=== PATIENT | female | born 1980 | race Two or more races ===

== ENCOUNTER 2017-06-24 21:12 | Emergency (ER) | payer OTHER ==
[~2017-06-24] VITALS: Ht 162.6 cm; Wt 198.7 kg
[~2017-06-24 21:12] MED LIST: CEFP200 PO; DOXY100 PO; HEPARIN 1,1000 UNIT/; HYDACE5325 PO; HYDMOR2 PO; Keflex500 MG PO; LANTUS; LEVOTHYROXINE; LORA.5; NAPR500 PO; NAPR550 PO; NOVOLOG; Norco 5-325 Ta1 EACH PO; OXYACE5T PO; OXYACE7.5T; PENVK500 PO; Percocet 5-3251 EACH PO; RXHYDMOR2 PO; RXNAPNA550 PO; RXOXYACE PO; TRAM50; WARF5 PO; Zofran Odt4 MG SL
[2017-06-24 21:41] LABS: BASOPHILS ABSOLUTE AUTO 0.04 K/mm3 (0.00-0.23); BASOPHILS PERCENT AUTO 1 % (0-2); EOSINOPHILS ABSOLUTE AUTO 0.37 K/mm3 (0.00-0.68); EOSINOPHILS PERCENT AUTO 6 % (0-6); Hematocrit 44.2 % (33.0-51.0); Hemoglobin 14.3 g/dL (11.5-16.0); IMMATURE GRAN ABSOLUTE AUTO 0.03 K/mm3 (0.00-0.10); IMMATURE GRAN PERCENT AUTO 0 % (0-1); LYMPHOCYTES ABSOLUTE AUTO 1.14 K/mm3 (0.84-5.20); LYMPHOCYTES PERCENT AUTO 17 % (21-46); MONOCYTES ABSOLUTE AUTO 0.54 K/mm3 (0.16-1.47); MONOCYTES PERCENT AUTO 8 % (4-13); Mean Corpuscular HGB 24.9 pg (26.0-34.0); Mean Corpuscular HGB Conc 32.4 g/dL (31.5-36.5); Mean Corpuscular Volume 77 fL (80-100); NEUTROPHILS ABSOLUTE AUTO 4.55 K/mm3 (1.96-9.15); NEUTROPHILS PERCENT AUTO 68 % (41-73); Platelet Count 332 K/mm3 (150-400); RDW Coefficient Variation 14.9 % (11.7-14.2); RDW Standard Deviation 40.3 fL (35.1-46.3); Red Blood Cell Count 5.75 M/mm3 (3.80-5.20); White Blood Cell Count 6.67 K/mm3 (4.00-11.30)
[2017-06-24 22:00] LABS: Alanine Aminotransfer (ALT/SGP 41 U/L (12-78); Albumin, Blood 3.6 g/dL (3.4-5.0); Albumin/Globulin Ratio 0.8 (0.8-1.8); Alk Phos 113 U/L (50-136); Anion Gap 7 mmol/L (6-16); Aspartate Aminotrans (AST/SGOT 25 U/L (12-37); Bilirubin, Total 0.4 mg/dL (0.1-1.0); Blood Urea Nitrogen 8 mg/dL (8-24); Bun/Creatinine Ratio 13.5 (12.0-20.0); CO2, Blood 27 mmol/L (21-32); Calcium, Blood 8.7 mg/dL (8.5-10.1); Chloride, Blood 101 mmol/L (98-108); Creatinine, Blood 0.59 mg/dL (0.40-1.00); Globulin, Blood 4.6 g/dL (2.2-4.0); Glomerular Filtration Rate >60 (60-); Glucose, Blood 221 mg/dL (70-99); Potassium, Blood 3.9 mmol/L (3.5-5.5); Sodium, Blood 135 mmol/L (136-145); Total Protein, Blood 8.2 g/dL (6.4-8.2)
[2017-06-24 22:30] LABS: Source, Urine Voided
[2017-06-24 22:32] LABS: Bilirubin, Urine Neg (Neg); Blood, Urine Neg (Neg); Glucose Qualitative, Urine 2+ (Neg); Ketones, Urine Neg (Neg); Leukocyte Esterase, Urine 1+ (Neg); Nitrite, Urine Neg (Neg); Protein, Urine 1+ (Neg); Specific Gravity, Urine 1.015 (1.003-1.022); Urobilinogen, Urine 1+ (Normal)
[2017-06-24 22:39] LABS: Appearance, Urine Clear (Clear); Color, Urine Yellow (P-Yellow)
[2017-06-24 22:41] LABS: Bacteria Rare /hpf; Red Blood Cells, Urine Not Seen /hpf (0-2); Squamous Epithelial Cells Rare /hpf (Few); White Blood Cells, Urine 0-2 /hpf (0-5)
[2017-06-24 22:47] LABS: Influenza A Negative (NEGATIVE); Influenza B Negative (NEGATIVE)
[2017-06-24 22:49] LABS: International Normalized Ratio 1.51; Prothrombin Time Results 15.9 Sec (9.7-11.5)
[2017-06-24] MEDS ORDERED: Zofran Odt4 MG SL (23:55)
[2017-06-24] MEDS ORDERED: Mucinex600 MG PO (23:55)
[2017-06-24] MEDS ORDERED: Pseudoephedrine30 MG PO (23:55)
[2017-06-25] MEDS ORDERED: Robaxin500 MG PO (00:09)
== END 2017-06-25 00:14 | disposition home or self-care (01) ==
LOC: ER 21:12
PROVIDERS: Emergency Medicine; Physician Assistant
DX: J06.9 Acute upper respiratory infection, unspecified (principal); R10.11 Right upper quadrant pain; R10.31 Right lower quadrant pain; N83.202 Unspecified ovarian cyst, left side; E11.9 Type 2 diabetes mellitus without complications; J45.909 Unspecified asthma, uncomplicated; Z79.01 Long term (current) use of anticoagulants; Z79.899 Other long term (current) drug therapy; Z79.4 Long term (current) use of insulin; Z86.718 Personal history of other venous thrombosis and embolism; Z90.49 Acquired absence of other specified parts of digestive tract
CPT/HCPCS: 36415; 71046; 74176; 80053; 81001; 81025; 83690; 85025; 85610; 87081; 87086; 87430; 87804; 96374; 96375; 99284; J1170; J2405

== ENCOUNTER 2017-07-21 15:06 | Emergency (ER) | payer OTHER ==
[~2017-07-21] VITALS: Ht 162.6 cm; Wt 193.0 kg
[~2017-07-21 15:06] MED LIST changes: +Mucinex600 MG PO; +Pseudoephedrine30 MG PO; +Robaxin500 MG PO
[2017-07-21] MEDS ORDERED: LEVSOD75 PO (15:51)
[2017-07-21] MEDS ORDERED: Novolog Fl100 UNIT/1 (15:51)
[2017-07-21] MEDS ORDERED: GABA100 PO (15:52)
[2017-07-21] MEDS ORDERED: WARF10 PO (15:52)
[2017-07-21 16:14] LABS: Source, Urine Catheter
[2017-07-21 16:18] LABS: Blood, Urine 2+ (Neg); Glucose Qualitative, Urine Neg (Neg); Ketones, Urine 4+ (Neg); Leukocyte Esterase, Urine 1+ (Neg); Nitrite, Urine Neg (Neg); Protein, Urine 2+ (Neg); Urobilinogen, Urine 1+ (Normal)
[2017-07-21 16:24] LABS: Appearance, Urine Clear (Clear); Bilirubin, Urine 1+ (Neg); Color, Urine Yellow (P-Yellow)
[2017-07-21 16:26] LABS: Yeast/Fungi Urine Few /hpf
[2017-07-21 16:27] LABS: Bacteria Few /hpf; Squamous Epithelial Cells Mod /hpf (Few)
[2017-07-21 16:44] LABS: BASOPHILS ABSOLUTE AUTO 0.04 K/mm3 (0.00-0.23); BASOPHILS PERCENT AUTO 1 % (0-2); EOSINOPHILS PERCENT AUTO 5 % (0-6); Hematocrit 36.4 % (33.0-51.0); Hemoglobin 11.5 g/dL (11.5-16.0); IMMATURE GRAN ABSOLUTE AUTO 0.02 K/mm3 (0.00-0.10); IMMATURE GRAN PERCENT AUTO 0 % (0-1); LYMPHOCYTES ABSOLUTE AUTO 1.54 K/mm3 (0.84-5.20); LYMPHOCYTES PERCENT AUTO 21 % (21-46); MONOCYTES ABSOLUTE AUTO 0.64 K/mm3 (0.16-1.47); MONOCYTES PERCENT AUTO 9 % (4-13); Mean Corpuscular HGB 24.8 pg (26.0-34.0); Mean Corpuscular HGB Conc 31.6 g/dL (31.5-36.5); Mean Corpuscular Volume 78 fL (80-100); Mean Platelet Volume 9.6 fL (9.1-12.4); NEUTROPHILS ABSOLUTE AUTO 4.78 K/mm3 (1.96-9.15); NEUTROPHILS PERCENT AUTO 64 % (41-73); Platelet Count 378 K/mm3 (150-400); RDW Standard Deviation 42.8 fL (35.1-46.3); Red Blood Cell Count 4.64 M/mm3 (3.80-5.20); White Blood Cell Count 7.42 K/mm3 (4.00-11.30)
[2017-07-21 17:00] LABS: Prothrombin Time Results 57.4 Sec (9.7-11.5)
[2017-07-21 17:14] LABS: Alanine Aminotransfer (ALT/SGP 30 U/L (12-78); Albumin, Blood 3.1 g/dL (3.4-5.0); Albumin/Globulin Ratio 0.7 (0.8-1.8); Alk Phos 160 U/L (50-136); Anion Gap 10 mmol/L (6-16); Aspartate Aminotrans (AST/SGOT 32 U/L (12-37); Bilirubin, Total 0.7 mg/dL (0.1-1.0); Blood Urea Nitrogen 8 mg/dL (8-24); Bun/Creatinine Ratio 11.5 (12.0-20.0); CO2, Blood 24 mmol/L (21-32); Calcium, Blood 8.3 mg/dL (8.5-10.1); Chloride, Blood 103 mmol/L (98-108); Creatinine, Blood 0.69 mg/dL (0.40-1.00); Globulin, Blood 4.7 g/dL (2.2-4.0); Glomerular Filtration Rate >60 (60-); Glucose, Blood 98 mg/dL (70-99); Potassium, Blood 3.5 mmol/L (3.5-5.5); Sodium, Blood 137 mmol/L (136-145); Total Protein, Blood 7.8 g/dL (6.4-8.2)
[2017-07-21 17:20] LABS: International Normalized Ratio 5.24
== END 2017-07-21 20:50 | disposition short-term general hospital (02) ==
LOC: ER 15:06
PROVIDERS: Emergency Medicine
DX: K85.90 Acute pancreatitis without necrosis or infection, unspecified (principal); K91.870 Postprocedural hematoma of a digestive system organ or structure following a digestive system procedure; R79.1 Abnormal coagulation profile; J45.909 Unspecified asthma, uncomplicated
CPT/HCPCS: 36415; 74177; 80053; 81001; 81025; 82947; 83690; 85025; 85610; 93005; 93010; 96361; 96374; 96375; 96376; 99285; J1170; J2405; J7030; P9612; Q9967

== ENCOUNTER 2017-08-05 12:56 | Inpatient (IN) | payer OTHER ==
[~2017-08-05] VITALS: Ht 165.1 cm; Wt 188.2 kg
[~2017-08-05 12:56] MED LIST changes: +GABA100 PO; +LEVSOD75 PO; +Novolog Fl100 UNIT/1; +WARF10 PO
[2017-08-05 14:08] LABS: BASOPHILS ABSOLUTE AUTO 0.05 K/mm3 (0.00-0.23); BASOPHILS PERCENT AUTO 1 % (0-2); EOSINOPHILS ABSOLUTE AUTO 0.22 K/mm3 (0.00-0.68); EOSINOPHILS PERCENT AUTO 3 % (0-6); Hematocrit 40.3 % (33.0-51.0); Hemoglobin 12.5 g/dL (11.5-16.0); IMMATURE GRAN ABSOLUTE AUTO 0.02 K/mm3 (0.00-0.10); IMMATURE GRAN PERCENT AUTO 0 % (0-1); LYMPHOCYTES ABSOLUTE AUTO 1.31 K/mm3 (0.84-5.20); LYMPHOCYTES PERCENT AUTO 17 % (21-46); MONOCYTES ABSOLUTE AUTO 0.57 K/mm3 (0.16-1.47); MONOCYTES PERCENT AUTO 7 % (4-13); Mean Corpuscular HGB 24.8 pg (26.0-34.0); Mean Corpuscular Volume 80 fL (80-100); NEUTROPHILS ABSOLUTE AUTO 5.59 K/mm3 (1.96-9.15); NEUTROPHILS PERCENT AUTO 72 % (41-73); Platelet Count 289 K/mm3 (150-400); RDW Coefficient Variation 15.9 % (11.7-14.2); RDW Standard Deviation 45.6 fL (35.1-46.3); Red Blood Cell Count 5.04 M/mm3 (3.80-5.20); White Blood Cell Count 7.76 K/mm3 (4.00-11.30)
[2017-08-05 14:27] LABS: Alanine Aminotransfer (ALT/SGP 46 U/L (12-78); Albumin, Blood 3.3 g/dL (3.4-5.0); Albumin/Globulin Ratio 0.6 (0.8-1.8); Alk Phos 205 U/L (50-136); Anion Gap 12 mmol/L (6-16); Aspartate Aminotrans (AST/SGOT 36 U/L (12-37); Bilirubin, Total 0.4 mg/dL (0.1-1.0); Blood Urea Nitrogen 9 mg/dL (8-24); Bun/Creatinine Ratio 14.6 (12.0-20.0); CO2, Blood 20 mmol/L (21-32); Calcium, Blood 8.3 mg/dL (8.5-10.1); Chloride, Blood 105 mmol/L (98-108); Creatinine, Blood 0.62 mg/dL (0.40-1.00); Globulin, Blood 5.1 g/dL (2.2-4.0); Glomerular Filtration Rate >60 (60-); Glucose, Blood 125 mg/dL (70-99); Potassium, Blood 3.5 mmol/L (3.5-5.5); Sodium, Blood 137 mmol/L (136-145); Total Protein, Blood 8.4 g/dL (6.4-8.2)
[2017-08-05 15:01] LABS: International Normalized Ratio 2.24; Prothrombin Time Results 23.9 Sec (9.7-11.5)
[2017-08-05] MEDS ORDERED: MIRALAX17 GM PO (18:03)
[2017-08-05] MEDS ORDERED: METO10 PO (22:46)
[2017-08-05] MEDS ORDERED: FAMO20 PO (22:48)
[2017-08-05 23:16] LABS: Blood, Urine 1+ (Neg); Glucose Qualitative, Urine Neg (Neg); Ketones, Urine 4+ (Neg); Leukocyte Esterase, Urine 3+ (Neg); Nitrite, Urine Neg (Neg); Protein, Urine 2+ (Neg); Specific Gravity, Urine 1.025 (1.003-1.022); Urobilinogen, Urine 2+ (Normal)
[2017-08-05 23:18] LABS: Appearance, Urine Hazy (Clear); Bilirubin, Urine 1+ (Neg); Color, Urine Amber (P-Yellow)
[2017-08-05 23:27] LABS: Amorphous Light (0-Heavy); Bacteria Mod /hpf; Mucus Mod (0-Heavy); Squamous Epithelial Cells Mod /hpf (Few); Yeast/Fungi Urine Mod /hpf
[2017-08-06 05:50] LABS: BASOPHILS ABSOLUTE AUTO 0.05 K/mm3 (0.00-0.23); BASOPHILS PERCENT AUTO 1 % (0-2); EOSINOPHILS ABSOLUTE AUTO 0.39 K/mm3 (0.00-0.68); EOSINOPHILS PERCENT AUTO 6 % (0-6); Hemoglobin 10.5 g/dL (11.5-16.0); IMMATURE GRAN ABSOLUTE AUTO 0.01 K/mm3 (0.00-0.10); IMMATURE GRAN PERCENT AUTO 0 % (0-1); LYMPHOCYTES ABSOLUTE AUTO 1.64 K/mm3 (0.84-5.20); LYMPHOCYTES PERCENT AUTO 26 % (21-46); MONOCYTES ABSOLUTE AUTO 0.52 K/mm3 (0.16-1.47); MONOCYTES PERCENT AUTO 8 % (4-13); Mean Corpuscular HGB 24.5 pg (26.0-34.0); Mean Corpuscular HGB Conc 30.9 g/dL (31.5-36.5); Mean Corpuscular Volume 79 fL (80-100); Mean Platelet Volume 10.9 fL (9.1-12.4); NEUTROPHILS ABSOLUTE AUTO 3.71 K/mm3 (1.96-9.15); NEUTROPHILS PERCENT AUTO 59 % (41-73); Platelet Count 278 K/mm3 (150-400); RDW Coefficient Variation 15.8 % (11.7-14.2); RDW Standard Deviation 45.4 fL (35.1-46.3); Red Blood Cell Count 4.29 M/mm3 (3.80-5.20); White Blood Cell Count 6.32 K/mm3 (4.00-11.30)
[2017-08-06 06:03] LABS: International Normalized Ratio 2.93; Prothrombin Time Results 31.5 Sec (9.7-11.5)
[2017-08-06 06:34] LABS: Anion Gap 12 mmol/L (6-16); Blood Urea Nitrogen 6 mg/dL (8-24); Bun/Creatinine Ratio 10.7 (12.0-20.0); CO2, Blood 21 mmol/L (21-32); Calcium, Blood 7.7 mg/dL (8.5-10.1); Chloride, Blood 107 mmol/L (98-108); Creatinine, Blood 0.56 mg/dL (0.40-1.00); Glomerular Filtration Rate >60 (60-); Glucose, Blood 102 mg/dL (70-99); Phosphorus, Blood 3.5 mg/dL (2.5-4.9); Potassium, Blood 3.3 mmol/L (3.5-5.5); Sodium, Blood 140 mmol/L (136-145)
[2017-08-07 05:58] LABS: Prothrombin Time Results 44.4 Sec (9.7-11.5)
[2017-08-07 06:03] LABS: International Normalized Ratio 4.09
[2017-08-07 09:37] LABS: BASOPHILS ABSOLUTE AUTO 0.04 K/mm3 (0.00-0.23); BASOPHILS PERCENT AUTO 1 % (0-2); EOSINOPHILS ABSOLUTE AUTO 0.38 K/mm3 (0.00-0.68); EOSINOPHILS PERCENT AUTO 6 % (0-6); Hematocrit 34.2 % (33.0-51.0); Hemoglobin 10.8 g/dL (11.5-16.0); IMMATURE GRAN ABSOLUTE AUTO 0.02 K/mm3 (0.00-0.10); IMMATURE GRAN PERCENT AUTO 0 % (0-1); LYMPHOCYTES ABSOLUTE AUTO 1.58 K/mm3 (0.84-5.20); LYMPHOCYTES PERCENT AUTO 24 % (21-46); MONOCYTES ABSOLUTE AUTO 0.45 K/mm3 (0.16-1.47); MONOCYTES PERCENT AUTO 7 % (4-13); Mean Corpuscular HGB 24.9 pg (26.0-34.0); Mean Corpuscular HGB Conc 31.6 g/dL (31.5-36.5); Mean Corpuscular Volume 79 fL (80-100); Mean Platelet Volume 10.6 fL (9.1-12.4); NEUTROPHILS ABSOLUTE AUTO 4.05 K/mm3 (1.96-9.15); NEUTROPHILS PERCENT AUTO 62 % (41-73); Platelet Count 324 K/mm3 (150-400); RDW Coefficient Variation 15.8 % (11.7-14.2); Red Blood Cell Count 4.34 M/mm3 (3.80-5.20); White Blood Cell Count 6.52 K/mm3 (4.00-11.30)
[2017-08-07 10:02] LABS: Anion Gap 10 mmol/L (6-16); Blood Urea Nitrogen 4 mg/dL (8-24); Bun/Creatinine Ratio 7.4 (12.0-20.0); CO2, Blood 22 mmol/L (21-32); Calcium, Blood 7.7 mg/dL (8.5-10.1); Chloride, Blood 108 mmol/L (98-108); Creatinine, Blood 0.54 mg/dL (0.40-1.00); Glomerular Filtration Rate >60 (60-); Glucose, Blood 102 mg/dL (70-99); Magnesium, Blood 1.8 mg/dL (1.6-2.4); Phosphorus, Blood 3.3 mg/dL (2.5-4.9); Potassium, Blood 3.7 mmol/L (3.5-5.5); Sodium, Blood 140 mmol/L (136-145)
[2017-08-08 05:59] LABS: BASOPHILS ABSOLUTE AUTO 0.03 K/mm3 (0.00-0.23); BASOPHILS PERCENT AUTO 1 % (0-2); EOSINOPHILS ABSOLUTE AUTO 0.51 K/mm3 (0.00-0.68); EOSINOPHILS PERCENT AUTO 8 % (0-6); Hematocrit 34.1 % (33.0-51.0); Hemoglobin 10.7 g/dL (11.5-16.0); IMMATURE GRAN ABSOLUTE AUTO 0.01 K/mm3 (0.00-0.10); IMMATURE GRAN PERCENT AUTO 0 % (0-1); LYMPHOCYTES ABSOLUTE AUTO 1.68 K/mm3 (0.84-5.20); LYMPHOCYTES PERCENT AUTO 26 % (21-46); MONOCYTES ABSOLUTE AUTO 0.54 K/mm3 (0.16-1.47); MONOCYTES PERCENT AUTO 8 % (4-13); Mean Corpuscular HGB 24.5 pg (26.0-34.0); Mean Corpuscular HGB Conc 31.4 g/dL (31.5-36.5); Mean Corpuscular Volume 78 fL (80-100); Mean Platelet Volume 10.6 fL (9.1-12.4); NEUTROPHILS ABSOLUTE AUTO 3.78 K/mm3 (1.96-9.15); NEUTROPHILS PERCENT AUTO 58 % (41-73); Platelet Count 328 K/mm3 (150-400); RDW Coefficient Variation 15.9 % (11.7-14.2); RDW Standard Deviation 45.1 fL (35.1-46.3); Red Blood Cell Count 4.36 M/mm3 (3.80-5.20); White Blood Cell Count 6.55 K/mm3 (4.00-11.30)
[2017-08-08 06:13] LABS: International Normalized Ratio 3.2; Prothrombin Time Results 34.5 Sec (9.7-11.5)
[2017-08-08 06:25] LABS: Anion Gap 8 mmol/L (6-16); Blood Urea Nitrogen 4 mg/dL (8-24); Bun/Creatinine Ratio 6.8 (12.0-20.0); CO2, Blood 24 mmol/L (21-32); Calcium, Blood 7.7 mg/dL (8.5-10.1); Chloride, Blood 107 mmol/L (98-108); Creatinine, Blood 0.59 mg/dL (0.40-1.00); Glomerular Filtration Rate >60 (60-); Glucose, Blood 132 mg/dL (70-99); Magnesium, Blood 1.8 mg/dL (1.6-2.4); Phosphorus, Blood 3.2 mg/dL (2.5-4.9); Potassium, Blood 3.3 mmol/L (3.5-5.5); Sodium, Blood 139 mmol/L (136-145); Triglycerides 131 mg/dL (30-140)
[2017-08-09 06:50] LABS: International Normalized Ratio 1.87; Prothrombin Time Results 19.8 Sec (9.7-11.5)
[2017-08-09 12:55] LABS: Anion Gap 7 mmol/L (6-16); Blood Urea Nitrogen 4 mg/dL (8-24); CO2, Blood 26 mmol/L (21-32); Calcium, Blood 8.1 mg/dL (8.5-10.1); Chloride, Blood 105 mmol/L (98-108); Glomerular Filtration Rate >60 (60-); Glucose, Blood 185 mg/dL (70-99); Potassium, Blood 3.9 mmol/L (3.5-5.5); Sodium, Blood 138 mmol/L (136-145)
[2017-08-10 08:40] LABS: International Normalized Ratio 1.12; Prothrombin Time Results 11.7 Sec (9.7-11.5)
[2017-08-10 08:45] LABS: Anion Gap 6 mmol/L (6-16); Blood Urea Nitrogen 3 mg/dL (8-24); Bun/Creatinine Ratio 5.8 (12.0-20.0); CO2, Blood 27 mmol/L (21-32); Calcium, Blood 7.9 mg/dL (8.5-10.1); Chloride, Blood 106 mmol/L (98-108); Creatinine, Blood 0.52 mg/dL (0.40-1.00); Glomerular Filtration Rate >60 (60-); Glucose, Blood 143 mg/dL (70-99); Potassium, Blood 3.5 mmol/L (3.5-5.5); Sodium, Blood 139 mmol/L (136-145)
[2017-08-11 08:09] LABS: International Normalized Ratio 1.09; Prothrombin Time Results 11.4 Sec (9.7-11.5)
[2017-08-12 06:28] LABS: International Normalized Ratio 1.1; Prothrombin Time Results 11.5 Sec (9.7-11.5)
[2017-08-13 06:18] LABS: International Normalized Ratio 1.2; Prothrombin Time Results 12.6 Sec (9.7-11.5)
[2017-08-14 05:02] LABS: International Normalized Ratio 1.37; Prothrombin Time Results 14.4 Sec (9.7-11.5)
[2017-08-15 07:11] LABS: International Normalized Ratio 1.54; Prothrombin Time Results 16.2 Sec (9.7-11.5)
[2017-08-15 07:14] LABS: Triglycerides 211 mg/dL (30-140)
[2017-08-16 06:44] LABS: Hematocrit 32.6 % (33.0-51.0); Hemoglobin 10.1 g/dL (11.5-16.0); Mean Corpuscular HGB 24.5 pg (26.0-34.0); Mean Corpuscular Volume 79 fL (80-100); Mean Platelet Volume 10.1 fL (9.1-12.4); Platelet Count 318 K/mm3 (150-400); RDW Coefficient Variation 15.9 % (11.7-14.2); RDW Standard Deviation 45.2 fL (35.1-46.3); Red Blood Cell Count 4.12 M/mm3 (3.80-5.20); White Blood Cell Count 5.89 K/mm3 (4.00-11.30)
[2017-08-16 07:01] LABS: Alanine Aminotransfer (ALT/SGP 25 U/L (12-78); Albumin, Blood 2.6 g/dL (3.4-5.0); Albumin/Globulin Ratio 0.6 (0.8-1.8); Alk Phos 115 U/L (50-136); Anion Gap 7 mmol/L (6-16); Aspartate Aminotrans (AST/SGOT 16 U/L (12-37); Bilirubin, Total 0.2 mg/dL (0.1-1.0); Blood Urea Nitrogen 4 mg/dL (8-24); Bun/Creatinine Ratio 7.3 (12.0-20.0); CO2, Blood 28 mmol/L (21-32); Chloride, Blood 106 mmol/L (98-108); Creatinine, Blood 0.55 mg/dL (0.40-1.00); Globulin, Blood 4.2 g/dL (2.2-4.0); Glomerular Filtration Rate >60 (60-); Glucose, Blood 189 mg/dL (70-99); Potassium, Blood 3.9 mmol/L (3.5-5.5); Sodium, Blood 141 mmol/L (136-145); Total Protein, Blood 6.8 g/dL (6.4-8.2)
[2017-08-16 07:02] LABS: International Normalized Ratio 1.46; Prothrombin Time Results 15.4 Sec (9.7-11.5)
[2017-08-17 06:54] LABS: International Normalized Ratio 1.18; Prothrombin Time Results 12.3 Sec (9.7-11.5)
[2017-08-19 07:16] LABS: Anion Gap 7 mmol/L (6-16); Blood Urea Nitrogen 17 mg/dL (8-24); Bun/Creatinine Ratio 30.3 (12.0-20.0); CO2, Blood 25 mmol/L (21-32); Calcium, Blood 7.9 mg/dL (8.5-10.1); Chloride, Blood 105 mmol/L (98-108); Creatinine, Blood 0.56 mg/dL (0.40-1.00); Glomerular Filtration Rate >60 (60-); Glucose, Blood 179 mg/dL (70-99); Potassium, Blood 3.9 mmol/L (3.5-5.5); Sodium, Blood 137 mmol/L (136-145)
== END 2017-08-19 19:20 | disposition short-term general hospital (02) | DRG 438 ==
LOC: ER 12:56 → MEDS 16:17
PROVIDERS: Family Medicine; Hospitalist; Internal Medicine; Pharmacist
PROC: 05HM33Z Insertion of Infusion Device into Right Internal Jugular Vein, Percutaneous Approach (ICD-10-PCS; principal; 2017-08-08)
DX: K85.90 Acute pancreatitis without necrosis or infection, unspecified (principal); K75.0 Abscess of liver; Z68.44 Body mass index [BMI] 60.0-69.9, adult; E03.9 Hypothyroidism, unspecified; E11.9 Type 2 diabetes mellitus without complications; Z98.84 Bariatric surgery status; Z86.718 Personal history of other venous thrombosis and embolism; K21.9 Gastro-esophageal reflux disease without esophagitis; E66.01 Morbid (severe) obesity due to excess calories
CPT/HCPCS: 36415; 36569; 51798; 71046; 74160; 80048; 80053; 81001; 82947; 83690; 83735; 84100; 84478; 85025; 85027; 85610; 87086; 87147; 93005; 93010; 93971; 96361; 96374; 96375; 96376; 99285; C1751; C9113; J0610; J0690; J0696; J1170; J1650; J1815; J1885; J2060; J2405; J2765; J3010; J3475; J3480; J3490; J7030; J7120; J7131; Q9967

== ENCOUNTER → 2017-10-14 | Outpatient (CLI) | payer OTHER ==
[~2017-10-14] MED LIST changes: +FAMO20 PO; +METO10 PO; +MIRALAX17 GM PO
[2017-10-14 14:33] LABS: Source, Urine Clean Catch
[2017-10-14 18:04] LABS: Appearance, Urine Clear (Clear); Blood, Urine 1+ (Neg); Color, Urine Yellow (P-Yellow); Glucose Qualitative, Urine Neg (Neg); Ketones, Urine 2+ (Neg); Leukocyte Esterase, Urine 1+ (Neg); Nitrite, Urine Neg (Neg); Protein, Urine 2+ (Neg); Specific Gravity, Urine 1.005 (1.003-1.022); Urobilinogen, Urine 2+ (Normal)
[2017-10-14 18:17] LABS: Bilirubin, Urine 1+ (Neg); Mucus Light (0-Heavy)
[2017-10-14 18:18] LABS: Bacteria Few /hpf; Squamous Epithelial Cells Mod /hpf (Few)
== END | disposition home or self-care (01) ==
LOC: LAB SHORT 14:31 → LAB 14:31
PROVIDERS: Obstetrics & Gynecology
DX: R30.9 Painful micturition, unspecified (principal)
CPT/HCPCS: 81001; 87086; 87147

== ENCOUNTER 2021-02-28 11:55 | Day surgery (SDC) | payer OTHER ==
[~2021-02-28] VITALS: Ht 165.1 cm; Wt 121.1 kg
[~2021-02-28 11:55] MED LIST changes: +ALBU2.5V5; +DICY20 PO; +DOCU100 PO; +FLUT.05NI; +MOTEGRITY2 MG PO; +OMEPRAZOLE20 MG PO; +SYMBICORT 16010.2 GM INH; +TRAZ100 PO; +Triamcinolone A15 G3 TOP
--- NOTE | 2021-02-28 12:18 | NUR ---
History, Chart, Medications and Allergies reviewed before start of procedure. Lungs clear T/O to Auscultation. Patient confirms NPO status and agrees with scheduled surgery. Pre-Op teaching done. Pt verbalizes understanding. Patient States Post-Procedure ride home has been arranged.
--- NOTE | 2021-02-28 12:37 | NUR ---
02/28/21 1237 Nohemy Hernández History, Chart, Medications and Allergies reviewed before start of procedure.MONITOR INTACT WITH CONTINUOUS PULSE OXIMETRY AND INTERMITTENT BP.O2 VIA N/C INTACT THROUGHOUT SEDATION/PROCEDURE. See Anesthesia record
--- NOTE | 2021-02-28 13:38 | NUR ---
PT'S VSS, TOLERATING JUICE. PT STATES "I'M VERY SLEEPY." PT LYING WITH EYES CLOSED. WILL CONTINUE TO MONITOR.
--- NOTE | 2021-02-28 14:28 | NUR ---
PT AWAKENS TO VERBAL STIMULI. DENIES PAIN OR NAUSEA. ABLE TO TOLERATE PO FLUIDS s DIFIFUCLTY. DRESSES SELF s ASSIST. IV DC'D, CATH INTACT AND PRESSURE DRESSING APPLIED. GIVEN INSTRUCTIONS ABOUT RX AND ADDITIONAL DC INSTRUCTIONS. VERBALIZES AN UNDERSTANDING s QUESTIONS. OTD IN NAD VIA WC TO SAFE RIDE HOME.
== END 2021-02-28 23:50 | disposition home or self-care (01) ==
LOC: ORSCMMR 11:55 → ORSCSDS 12:30 → ORSCMMR 23:50
PROVIDERS: Internal Medicine Gastroenterology
PROC: 0D788ZZ Dilation of Small Intestine, Via Natural or Artificial Opening Endoscopic (ICD-10-PCS; principal; 2021-02-28 12:30)
PROC: 0D778ZZ Dilation of Stomach, Pylorus, Via Natural or Artificial Opening Endoscopic (ICD-10-PCS; principal; 2021-02-28 12:30)
PROC: 0DB78ZX Excision of Stomach, Pylorus, Via Natural or Artificial Opening Endoscopic, Diagnostic (ICD-10-PCS; principal; 2021-02-28 12:30)
DX: R11.2 Nausea with vomiting, unspecified (principal); R10.9 Unspecified abdominal pain; K21.9 Gastro-esophageal reflux disease without esophagitis; K56.699 Other intestinal obstruction unspecified as to partial versus complete obstruction; Z98.84 Bariatric surgery status; Z79.899 Other long term (current) drug therapy; E66.01 Morbid (severe) obesity due to excess calories; Z68.42 Body mass index [BMI] 45.0-49.9, adult; J45.909 Unspecified asthma, uncomplicated
CPT/HCPCS: 82947; 88305; 88342; C1726; J2704; J7120